=== PATIENT | female | born 1955 | race African-American/Black ===

== ENCOUNTER 2016-08-13 20:49 | Emergency (ER) | payer MEDICARE ==
[~2016-08-13] VITALS: Ht 160 cm; Wt 59.9 kg
--- NOTE | 2016-08-13 21:38 | PHYS DOC ---
Adult General Chief Complaint Chief Complaint: ANKLE PROBLEM HPI HPI Patient is a 60 year old female who presents emergency Department today with complaint of left ankle and foot pain and swelling secondary to getting her foot caught on carpet with her shoe resulting in her tripping and falling. She denies striking her head or loss of consciousness. She has no other injuries or concerns at this time. She denies any previous fractures or dislocations to her left ankle or foot. She denies any history of bone forming disorders. Review of Systems Review of Systems Constitutional: Denies fever or chills [] Eyes: Denies change in visual acuity, redness, or eye pain [] HENT: Denies nasal congestion or sore throat [] Respiratory: Denies cough or shortness of breath [] Cardiovascular: No additional information not addressed in HPI [] GI: Denies abdominal pain, nausea, vomiting, bloody stools or diarrhea [] : Denies dysuria or hematuria [] Musculoskeletal: Denies back pain or joint pain [] Integument: Denies rash or skin lesions [] Neurologic: Denies headache, focal weakness or sensory changes [] Endocrine: Denies polyuria or polydipsia [] Current Medications Current Medications Current Medications Medications (Trade) Dose Ordered Sig/[facility] Start Time Stop Time Status Last Admin Dose Admin Ibuprofen (Motrin) 600 mg 1X ONCE 08/13/16 22:00 08/13/16 22:01 DC 08/13/16 21:51 600 MG Allergies Allergies Allergies Coded Allergies Type Severity Reaction Last Updated Verified Sulfa (Sulfonamide Antibiotics) Allergy Intermediate 08/13/16 Yes Physical Exam Physical Exam Constitutional: Well developed, well nourished, mild distress, non-toxic appearance. HENT: Normocephalic, atraumatic, bilateral external ears normal, oropharynx moist, no oral exudates, nose normal. [] Eyes: PERRLA, EOMI, conjunctiva normal, no discharge. [] Neck: Normal range of motion, no tenderness, supple, no stridor. [] Cardiovascular:Heart rate regular rhythm, no murmur [] Lungs & Thorax: Bilateral breath sounds clear to auscultation [] Abdomen: Bowel sounds normal, soft, no tenderness, no masses, no pulsatile masses. [] Skin: Warm, dry, no erythema, no rash. [] Back: No tenderness, no CVA tenderness. [] Extremities: Left knee and proximal lower leg are normal in appearance and nontender to palpation. Left ankle with mild swelling to both the medial and lateral malleolus. With tenderness to both. There is no palpable defect, deformity, instability or crepitus. Left foot is normal in appearance. Patient' s tenderness to palpation of both the proximal fourth and fifth metatarsals. There is no palpable defect, deformity, instability or crepitus. Patient is able to plantar and dorsiflex. Foot is neurovascularly intact with capillary refill less than 2 seconds. Neurologic: Alert and oriented X 3, normal motor function, normal sensory function, no focal deficits noted. [] Psychologic: Affect normal, judgement normal, mood normal. [] Current Patient Data Vital Signs Vital Signs Date Time Temp Pulse Resp B/P Pulse Ox O2 Delivery O2 Flow Rate FiO2 08/13/16 21:40 98.6 79 20 100 Room Air 98.6 EKG EKG [] Radiology/Procedures Radiology/Procedures 3 views patient's left ankle and 3 views patient's left foot were performed with adequate technique. There is no evidence of acute bony injury. There is a small ossicle that is seen lateral to the anterior aspect of the calcaneus. This is seen on one view of the foot. Course & Med Decision Making Course & Med Decision Making Pertinent Labs and Imaging studies reviewed. (See chart for details) [] Dragon Disclaimer Dragon Disclaimer This electronic medical record was generated, in whole or in part, using a voice recognition dictation system. Departure Departure Impression: Primary Impression: Ankle sprain Disposition: 01 HOME, SELF-CARE Condition: GOOD Patient Instructions: Ankle Sprain, [id number] Additional Instructions: 1. The x-rays of your ankle and foot today show no evidence of bony injury. 2. Wear the Vasyl wrap and ankle splint the next 3-5 days while you are up and performing usual activities. 3. Take 600-800 mg of ibuprofen every 8 hours with food or milk. 4. Apply ice pack to your ankle every 2 hours for 20-30 minutes at a time and keep your ankle/foot elevated as much as possible for the next 24 hours. 5. Review the discharge instructions for further self-care and reasons to return to the emergency department. 6. Follow-up next week with your primary care doctor as previously planned. Scripts Hydrocodone/Apap 5-325 ([place] 5-325 Tablet)1 Each Tablet1 Tab PO PRN Q6HRS PRN PAIN #10 TAB Prov:MATIAS BARTH 08/13/16 MATIAS BARTH Aug 13, 2016 21:38
[2016-08-13 21:40] VITALS: BP 147/85
[2016-08-13] MEDS ORDERED: IBUPROFEN 600 MG TABLET. PO ONE (22:00)
[2016-08-13] MEDS ORDERED: HYDR-971 PO (22:18)
--- NOTE | 2016-08-14 08:00 | RAD ---
Left ankle, 3 views, 08/13/2016: History: Pain and swelling after injury The distal fibula and tibia are intact. There is a small calcific density along the dorsal aspect of the anterior portion of the talus compatible with a cortical avulsion fracture. There is also a small cortical fracture arising from the dorsal aspect of the navicular bone distally. The age of these fractures is not clear. There is mild soft tissue swelling about the ankle. Left foot, 3 views, 08/13/2016: No additional fracture or dislocation is identified. There are mild degenerative changes at the first MTP joint. IMPRESSION: Small cortical fractures along the dorsal aspects of the anterior portion of the talus and the navicular bone, of indeterminate ages.
== END 2016-08-13 22:40 | disposition home or self-care (01) ==
LOC: ER 20:49
DX: S93.402A Sprain of unspecified ligament of left ankle, initial encounter (principal); Z88.2 Allergy status to sulfonamides; W01.0XXA Fall on same level from slipping, tripping and stumbling without subsequent striking against object, initial encounter; Y93.89 Activity, other specified; Y92.89 Other specified places as the place of occurrence of the external cause; Y99.8 Other external cause status
CPT/HCPCS: 29515; 73610; 73630; 99284-25

== ENCOUNTER 2019-11-25 09:08 | Emergency (ER) | payer MEDICARE ==
[~2019-11-25] VITALS: Ht 160 cm; Wt 68.1 kg
[~2019-11-25 09:08] MED LIST: HYDR-3164 PO
[2019-11-25 10:02] VITALS: BP 121/68
[2019-11-25] MEDS ORDERED: methylPREDNISolone SOD SUCC PF 125 MG/2 ML VIAL. IM ONE (10:45)
[2019-11-25] MEDS ORDERED: PRED20TA PO (10:46)
--- NOTE | 2019-11-25 10:46 | PHYS DOC ---
Past Medical History Past Medical History: Anxiety, Depression, High Cholesterol, Hypertension Past Surgical History: Tubal ligation Smoking Status: Current Every Day Smoker Alcohol Use: None Drug Use: None General Adult EDM: Chief Complaint: SKIN RASH/ABSCESS HPI: HPI: Patient is a 64 year old female presenting to the ED with a chief complaint of allergic reaction. Patient states that she has an allergy to sulfa and for her arthritis she is been taken [id number] medication that has Tylenol less than gradients that she does not know. Patient states that she has no respiratory complaints. Patient states that she tried to use Benadryl yesterday but the rash has not gone away. Review of Systems: Review of Systems: Constitutional: Denies fever or chills. [] Eyes: Denies change in visual acuity. [] HENT: Denies nasal congestion or sore throat. [] Respiratory: Denies cough or shortness of breath. [] Cardiovascular: Denies chest pain or edema. [] GI: Denies abdominal pain, nausea, vomiting, bloody stools or diarrhea. [] : Denies dysuria. [] Musculoskeletal: Denies back pain or joint pain. [] Integument: Complains of rash all over her body Heart Score: Risk Factors: Risk Factors: DM, Current or recent (<one month) smoker, HTN, HLP, family history of CAD, obesity. Risk Scores: Score 0 - 3: 2.5% MACE over next 6 weeks - Discharge Home Score 4 - 6: 20.3% MACE over next 6 weeks - Admit for Clinical Observation Score 7 - 10: 72.7% MACE over next 6 weeks - Early Invasive Strategies Current Medications: Current Medications Medications (Trade) Dose Ordered Sig/[facility] Start Time Stop Time Status Last Admin Dose Admin Methylprednisolone Sodium Succinate (SOLU-Medrol 125MG VIAL) 125 mg 1X ONCE 11/25/19 10:45 11/25/19 10:46 Allergies: Allergies: Allergies Coded Allergies Type Severity Reaction Last Updated Verified Sulfa (Sulfonamide Antibiotics) Allergy Intermediate 08/13/16 Yes Physical Exam: PE: Constitutional: Well developed, well nourished, no acute distress, non-toxic appearance. [] HENT: Normocephalic, atraumatic Eyes: EOMI Neck: Normal range of motion Respiratory: No respiratory distress or wheezing. Lungs are clear to auscultation. Extremities: No tenderness, ROM intact Neurologic: Alert and oriented X 3 Skin: Diffuse blanching hives all over patient's body Current Patient Data: Vital Signs: Vital Signs Date Time Temp Pulse Resp B/P (MAP) Pulse Ox O2 Delivery O2 Flow Rate FiO2 11/25/19 10:02 98.8 107 20 121/68 (85) 98 Room Air 98.8 EKG: EKG: [] Radiology/Procedures: Radiology/Procedures: [] Course & Med Decision Making: Course & Med Decision Making Ordered Solu-Medrol 125 mg IM. Patient be discharged home on prednisone oral tablets. Patient is also already using Benadryl tablets. Discussed plan of care with patient. Patient is instructed to follow up with PCP in one to 2 days. Appropriate discharge instructions given to patient to return to the ED or to seek immediate medical evaluation. Patient is instructed to return to the ED if symptoms worsen or if any concerns. Dragon Disclaimer: Dragon Disclaimer: This electronic medical record was generated, in whole or in part, using a voice recognition dictation system. Departure Departure Impression: Primary Impression: Hives Additional Impression: Allergic reaction Disposition: 01 HOME, SELF-CARE Condition: STABLE Referrals: NO PCP (PCP) Patient Instructions: Allergies, Generic, Hives Additional Instructions: Discussed plan of care with patient. Patient is instructed to follow up with PCP in one to 2 days. Appropriate discharge instructions given to patient to return to the ED or to seek immediate medical evaluation. Patient is instructed to return to the ED if symptoms worsen or if any concerns. Scripts Prednisone (PREDNISONE) 20 Mg Tablet 2 TAB PO DAILY for 5 Days, #10 TAB Prov: MERVIN SHERIDAN DO 11/25/19 Justicifation of Admission Dx: Justifications for Admission: Justification of Admission Dx: MERVIN Martinez DO Nov 25, 2019 10:46
== END 2019-11-25 10:58 | disposition home or self-care (01) ==
LOC: ER 09:08
DX: L50.0 Allergic urticaria (principal); E78.00 Pure hypercholesterolemia, unspecified; I10 Essential (primary) hypertension; F17.200 Nicotine dependence, unspecified, uncomplicated; Z88.2 Allergy status to sulfonamides
CPT/HCPCS: 96372; 99283; J2930